=== PATIENT | male | born 1995 | race Caucasian/White ===

== ENCOUNTER 2017-08-06 14:02 | Emergency (ER) | payer BC, OTHER ==
[~2017-08-06] VITALS: Ht 188 cm; Wt 81.8 kg
[~2017-08-06 14:02] MED LIST: RSPUNK; [UNRECOGNIZED DRUG - REMARK]
[2017-08-06 14:13] VITALS: Ht 188 cm; Wt 81.8 kg
[2017-08-06] MEDS ORDERED: XYLOCAINE 1%/SOD BICARB 20 ML VIAL INFIL ONE (14:30)
--- NOTE | 2017-08-06 15:03 | DIAGNOSTIC IMAGING REPORT ---
R FOOT MIN 3 VIEWS ROUTINE CLINICAL HISTORY: Right foot injury; attention: great toe. COMPARISON: None FINDINGS: Note is made of an acute nondisplaced fracture within the dorsal distal tuft of the distal phalanx of the right first toe. Associated nailbed injury is noted. No additional fractures within the right foot are noted. The tarsometatarsal joints are intact. IMPRESSION: Acute nondisplaced fracture of the dorsal distal tuft of the distal phalanx of the right first toe with suspected associated nailbed injury. Electronically signed by: Delta Bolaños M.D. 08/06/2017 3:02 PM Dictated Date/Time: 08/06/2017 2:58 PM
[2017-08-06] MEDS ORDERED: ONDANSETRON INJ 2 MG/ML 2 ML VIAL ONE (15:52)
[2017-08-06] MEDS ORDERED: MoRPHine SULFATE 4 MG/ML 1 ML CARP\\VIAL ONE (15:52)
[2017-08-06] MEDS ORDERED: CEFAZOLIN SOD 1000MG/7.5 ML IV PUSH IV ONE (15:59)
[2017-08-06] MEDS ORDERED: OXYC-57 PO (16:15)
[2017-08-06] MEDS ORDERED: CEPH500C2 PO (16:15)
[2017-08-06 16:38] VITALS: BP 127/78; PULSE 67; TEMP 36.6; O2SAT 97
--- NOTE | 2017-08-07 17:08 | EMERGENCY ROOM VISIT NOTE ---
ED Visit Note First contact with patient: 14:18 Chief Complaint: I injured my right big toenail. History of Present Illness: Mr. Cuevas a 22-year-old white male who ambulates into the ED accompanied by female friend complaining of right great toe pain. Patient reports less than a half an hour ago he was moving a platform and it dropped on his right great toe. He reports he injured the toenail. Associated with his injury he reports he has a throbbing pain throughout the right great toe. He rates his discomfort 2/10. His pain is nonradiating. His pain worsens with palpation and pushing off during ambulation. He has not identified any alleviating factors related to the pain. He has not taken any medications for pain prior to arrival at the hospital. He denies any associated other foot pain, other toe pain, great toe weakness/numbness/ tingling. Review of Systems: As noted above in history of present illness. Past Medical History: Patient denies. Current Medications: Patient denies. Allergies to Medications: Amoxicillin. Social History: Patient is currently employed; he feels safe in his home environment; he denies tobacco and alcohol use. Physical Examination: Vital Signs: Date Time Temp Pulse Resp B/P (MAP) Pulse Ox O2 Delivery O2 Flow Rate FiO2 08/06/17 14:13 36.6 67 18 127/78 97 Room Air GENERAL: 22-year-old male in mild to moderate distress due to pain, nontoxic- appearing, afebrile and hemodynamically stable. NEUROLOGICAL: Awake, alert and oriented to person, place and time. Answering questions appropriately and following commands. SKIN: Warm, dry and pink. Right Great Toe: Displacement of the toenail. Stalite full-thickness laceration of the nailbed of approximately 2.5 cm. RIGHT FOOT: No gross bony deformity. Displacement of the great toenail. Bleeding is controlled at the site of the injury. Decreased range of motion of the first MTP and interphalangeal joint. Throughout the toe the skin was warm and pink capillary refill is brisk. He is able to distinguish light sensations through all dermatomes of the toe. There is no tenderness throughout any of the other toes are throughout the foot. No additional soft tissue injuries were noted. ED Course: Patient is assessed as noted above. Patient's medication list was reviewed. Right Foot X-Rays: Were read by myself and the radiologist showing an acute nondisplaced fracture of the dorsal distal tuft of the distal phalanx of the right great toe. Wound Repair: Complexity: Basic, Intermediate, Advanced. Reason: Verbal consent was obtained after the risks and benefits were explained. A digital block was performed to the great toe using a total of 5.4 cm of buffered 1% lidocaine. The skin was prepped with betadine and a sterile field set. The toenail was completely removed, washed and cleansed. The nailbed wound was explored for foreign bodies and none found. Copious irrigation was performed using sterile saline. With direct pressure the bleeding subsided. Debridement was not performed. The wound edges were approximated using 6-0 Vicryl with 7 simple interrupted sutures. The toenail was then reapproximated under the cuticle and sutured in place with 4-0 Ethilon with 4 simple ruptured sutures. Hemostasis and excellent approximation was achieved. Antibacterial ointment and a sterile dressing applied. No complications and the patient tolerated the procedure well. An IV lock was initiated and patient received 1 g of Ancef IV for antibiotic coverage and he received 4 mg of morphine IV for pain and 4 mg of Zofran IV. Patient's foot was placed in a postop shoe; he was offered crutches and refused. Patient was educated about today's findings and instructed on his treatment plan ; he verbalized understanding and agreement with this plan. Clinical Impression: Open fracture of the right great toe. Right great toenail displacement and nailbed laceration. Disposition: Patient discharged home in stable condition accompanied by female friends; prior to departure he was reassessed and subjectively reported he was pain-free. Plan: Comfort measures, wound care and signs of infection were discussed with the patient. Patient was placed on a sliding pain scale of ibuprofen, acetaminophen and Percocet; his name was checked and state database and no red flags were noted and he was given appropriate narcotic precautions. Patient was prescribed Keflex for antibiotic coverage and instructed on its use. Patient was encouraged to follow-up with [facility] for specialty care and treatment. Patient was encouraged return ED for worsening/uncontrolled pain, signs of infection or any new/concerning symptoms.
== END 2017-08-06 16:39 | disposition home or self-care (01) ==
LOC: C.EDB 14:04 → C.EDD 16:39
DX: S92.401B Displaced unspecified fracture of right great toe, initial encounter for open fracture (principal); S91.211A Laceration without foreign body of right great toe with damage to nail, initial encounter; L60.8 Other nail disorders; W22.8XXA Striking against or struck by other objects, initial encounter; Y93.89 Activity, other specified; Y99.8 Other external cause status